=== PATIENT | male | born 1965 | race Caucasian/White ===

== ENCOUNTER → 2017-09-24 | Outpatient (CLI) | payer BC | END | disposition home or self-care (01) | LOC: C.CPL 08:20 | PROVIDERS: ATTEND Physician Assistant | DX: R42 Dizziness and giddiness (principal); I10 Essential (primary) hypertension ==

== ENCOUNTER → 2018-01-22 | Outpatient (CLI) | payer BC ==
--- NOTE | 2018-01-22 15:51 | DIAGNOSTIC IMAGING REPORT ---
KUB CLINICAL HISTORY: Nephrolithiasis. FINDINGS: An AP supine abdominal radiograph is obtained. No prior studies are available for comparison at the time of dictation. There is a nonobstructed abdominal bowel gas pattern noting moderate colonic fecal retention. A 2.1 cm calcification in the right upper quadrant likely represents a gallstone. There is no clear radiographic evidence of nephrolithiasis. No calcifications project along the course of the ureters. A prostatic calcification is noted in the pelvis. The bony structures appear intact. IMPRESSION: 1. There is no clear radiographic evidence of nephrolithiasis on today's examination. 2. A 2.1 cm calcification in the right upper quadrant likely represents a gallstone. Electronically signed by: Gio Bean M.D. 01/22/2018 3:50 PM Dictated Date/Time: 01/22/2018 3:48 PM
== END | disposition home or self-care (01) ==
LOC: C.RAD 15:02
PROVIDERS: ATTEND Nurse Practitioner Adult Health
DX: Z87.442 Personal history of urinary calculi (principal); R93.5 Abnormal findings on diagnostic imaging of other abdominal regions, including retroperitoneum